=== PATIENT | male | born 1940 | race Caucasian/White ===

== ENCOUNTER 2017-01-25 06:59 | Day surgery (SDC) | payer OTHER, BC ==
[2017-01-24 15:12] VITALS: BMI 42.5
[2017-01-25] MEDS ORDERED: LIDOCAINE HCL/PF 2% SDV 5ML VIAL ONE (07:48)
[2017-01-25] MEDS ORDERED: PROPOFOL 20 ML ONE ×2 (07:49)
[2017-01-25 08:39] VITALS: TEMP 98
[2017-01-25 09:35] VITALS: BP 133/83; PULSE 63
--- NOTE | 2017-01-26 13:22 | PATH ---
Surgical Pathology Report Patient Name: SHIRLEY MCPHERSON [facility]. Rec. #: [id number] /Age/Gender: 1940 (Age: 76) / M Account: [id number] Location: [facility]-ENDOSCOPY Taken: 01/25/2017 Received: 01/25/2017 Reported: 01/26/2017 Physicians: Wiliam Soria M.D. Specimen(s) Received A: BX ANTRUM B: BX ESOPHAGUS C: BX GASTRIC FUNDUS GASTRITIS D: BX RECTAL POLYP E: BX SIGMOID POLYP Clinical History Ellis's surveillance and adenoma GERD, gastritis, colon polyps Final Diagnosis A. STOMACH, ANTRUM, BIOPSY: GASTRIC ANTRAL MUCOSA WITH FOCALLY MODERATE CHRONIC GASTRITIS AND MARKED REACTIVE GASTROPATHY WITH FOCAL SURFACE EROSION. IMMUNOSTAIN FOR H. PYLORI IS NEGATIVE FOR ORGANISMS. B. ESOPHAGUS, DISTAL, BIOPSY: SQUAMOCOLUMNAR JUNCTION MUCOSA WITH CHRONIC INFLAMMATION AND REFLUX TYPE CHANGES. NO INTESTINAL METAPLASIA (ELLIS'S ESOPHAGUS) IDENTIFIED. C. STOMACH, FUNDUS, GASTRITIS, BIOPSY: ULCERATED GASTRIC OXYNTIC MUCOSA WITH ACTIVE MARKED CHRONIC GASTRITIS. IMMUNOSTAIN FOR H. PYLORI IS NEGATIVE FOR ORGANISMS. D. RECTUM, POLYP, BIOPSY: FRAGMENTS OF HYPERPLASTIC POLYP. E. COLON, SIGMOID, POLYP, BIOPSY: FRAGMENTS OF HYPERPLASTIC POLYP WITH SERRATED FEATURES. Electronically Signed Gomez Rodriguez M.D. Gross Description A. Received in formalin, labeled "biopsy antrum" are 2 lopez, irregular portions of soft tissue averaging 0.4 cm in greatest dimension. The specimens are submitted in toto in one cassette. B. Received in formalin, labeled "biopsy distal esophagus" are 3 lopez, irregular portions of soft tissue ranging from 0.5-0.8 cm in greatest dimension. The specimens are submitted in toto in one cassette. C. Received in formalin, labeled "biopsy fundus" is a lopez, irregular portion of soft tissue measuring 0.4 cm in greatest dimension. The specimen is submitted in toto in one cassette. D. Received in formalin, labeled "biopsy rectal polyp" are 2 lopez, irregular portions of soft tissue measuring 0.2 and 0.3 cm in greatest dimension. The specimens are submitted in toto in one cassette. E. Received in formalin, labeled "biopsy sigmoid polyp" are 2 lopez, irregular portions of soft tissue averaging 0.2 cm in greatest dimension. The specimens are submitted in toto in one cassette. BRITT01/25/2017 aaron01/25/2017
== END 2017-01-25 09:35 | disposition home or self-care (01) ==
LOC: JASU-ENDO 06:59
PROVIDERS: ATTEND Internal Medicine Gastroenterology
PROC: 0DBN8ZX Excision of Sigmoid Colon, Via Natural or Artificial Opening Endoscopic, Diagnostic (ICD-10-PCS; 2017-01-25)
PROC: 0DB68ZX Excision of Stomach, Via Natural or Artificial Opening Endoscopic, Diagnostic (ICD-10-PCS; 2017-01-25)
PROC: 0DBP8ZX Excision of Rectum, Via Natural or Artificial Opening Endoscopic, Diagnostic (ICD-10-PCS; principal; 2017-01-25 08:00)
DX: Z12.11 Encounter for screening for malignant neoplasm of colon (principal); Z86.010 Personal history of colon polyps; K62.1 Rectal polyp; K64.8 Other hemorrhoids; K57.30 Diverticulosis of large intestine without perforation or abscess without bleeding; D12.5 Benign neoplasm of sigmoid colon; K21.9 Gastro-esophageal reflux disease without esophagitis; K29.70 Gastritis, unspecified, without bleeding
CPT/HCPCS: 88305-TC; 88342-TC